=== PATIENT | male | born 2000 | race Caucasian/White ===

== ENCOUNTER 2020-10-19 15:06 | Emergency (ER) | payer OTHER ==
[~2020-10-19] VITALS: Ht 188 cm; Wt 93.0 kg
== END 2020-10-19 16:32 | disposition home or self-care (01) ==
LOC: ER 15:06 → EDBD 16:03 → ER 16:03
DX: S61.227A Laceration with foreign body of left little finger without damage to nail, initial encounter (principal); W25.XXXA Contact with sharp glass, initial encounter; Y93.89 Activity, other specified; Y92.89 Other specified places as the place of occurrence of the external cause; Y99.8 Other external cause status

== ENCOUNTER 2020-11-08 20:57 | Emergency (ER) | payer OTHER ==
[~2020-11-08] VITALS: Ht 188 cm; Wt 92.5 kg
== END 2020-11-08 21:40 | disposition home or self-care (01) ==
LOC: ER 20:57
DX: Z48.02 Encounter for removal of sutures (principal)